=== PATIENT | male | born 1970 | race Caucasian/White ===

== ENCOUNTER 2016-08-08 17:56 | Emergency (ER) | payer OTHER ==
[~2016-08-08] VITALS: Ht 177.8 cm; Wt 99.7 kg
[2016-08-08 17:58] VITALS: Ht 177.8 cm; Wt 99.7 kg
[2016-08-08] MEDS ORDERED: IBUPROFEN 600 MG TAB PO STA (18:06)
[2016-08-08] MEDS ORDERED: OXYCODONE IR HOME PACK PO ONE (18:15)
[2016-08-08] MEDS ORDERED: BACITRACIN OINT 15 GM TUBE EXT ONE (18:15)
[2016-08-08 18:30] VITALS: BP 151/91; PULSE 83; TEMP 36.8; O2SAT 96
--- NOTE | 2016-08-08 19:09 | EMERGENCY ROOM VISIT NOTE ---
History Report prepared by Sandhya: Rosy Smith Under the Supervision of: Dr. Jordan Babcock M.D. First contact with patient: 18:01 Chief Complaint: BURN (MINOR) Stated Complaint: GREASE BURN RIGHT HAND History of Present Illness The patient is a 46 year old male who presents to the Emergency Room with complaints of constant pain from carter to the right hand and left knee that occurred 30 minutes prior to arrival. The patient states that he was making persian fries when the grease splashed. He notes the grease spilled onto his right hand and left knee. He denies the grease splashing onto his face, shortness of breathing or chest pain or recent illness. The patient is UTD with his Tetanus. He has a history of hypertension and high cholesterol, he is on medications for these. 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 Review of Systems See HPI for pertinent positives & negatives. A total of 6 systems reviewed and were otherwise negative. Past Medical & Surgical Medical Problems: (1) High cholesterol (2) Hypertension Family History Patient reports no known family medical history. Social History Smoking Status: Never Smoker Smokeless Tobacco Use: No Marital Status: single Housing Status: lives alone Occupation Status: employed Current/Historical Medications No Active Prescriptions or Reported Meds Allergies Coded Allergies: No Known Allergies (Unverified , 08/08/16) Physical Exam Vital Signs Date Time Temp Pulse Resp B/P Pulse Ox O2 Delivery O2 Flow Rate FiO2 08/08/16 18:30 36.8 83 18 151/91 96 08/08/16 18:28 36.8 83 18 151/91 96 Room Air 08/08/16 17:58 36.8 83 18 183/94 96 Room Air Physical Exam Constitutional: Vital signs reviewed. Eyes: Pupils are equal round reactive to light. Conjunctiva are noninjected. ENT: Pharynx is clear without erythema or exudate. Mucous membranes are moist. Neck supple without meningeal signs. Respiratory: Clear to auscultation bilaterally. Breath sounds are equal bilaterally. Cardiovascular: Regular rate and rhythm. No rubs or gallops. Musculoskeletal: Superficial partial-thickness burn to the left distal thigh. Partial-thickness carter to the right dorsal hand and wrist with blistering. No circumferential carter. No full-thickness carter. Integumentary: As above. Neurological: The patient is awake and alert. No focal deficits. Psychiatric: Normal affect. Medical Decision & Procedures Medications Administered Medications (Trade) Dose Ordered Sig/Magdalena Route Start Time Stop Time Status Last Admin Dose Admin Oxycodone HCl (Roxicodone Immediate Rel 5MG Home Pack) 1 homepack UD ONCE PO 08/08/16 18:15 08/08/16 18:16 DC 08/08/16 18:19 1 HOMEPACK Ibuprofen (Motrin Tab) 600 mg NOW STAT PO 08/08/16 18:06 08/08/16 18:07 DC 08/08/16 18:18 600 MG Bacitracin (Bacitracin Oint) 1 appln NOW ONCE EXT 08/08/16 18:15 08/08/16 18:16 DC 08/08/16 18:18 1 APPLN ED Course 180: The patient was evaluated in room D9. A complete history and physical exam was performed. 1805: Motrin Tab 600 mg PO. 1814: Bacitracin Oint 1 appln EXT, Roxicodone Immediate Rel 5 MG Home Pack 1 homepack PO. 1816: Upon reevaluation, the patient appeared to have improvement of his symptoms. I discussed tonight's findings with him. He verbalized agreement of the treatment plan. He was discharged home. Medical Decision This is a 46-year-old male presents with carter from [place]. I did perform a limited focused review of portions of the patient's old chart on the electronic medical record. The patient has had no recent pertinent visits to this hospital. Medication Reconciliation: I attest that I have personally reviewed the patient' s current medication list. Blood Pressure Screening: Patient was found to have an elevated blood pressure and was referred to their primary doctor for recheck and further treatment. I did evaluate the patient as noted above. The patient has partial-thickness carter to the right upper extremity and left lower extremity. He has no circumferential carter or full-thickness carter. There are some blisters which are intact. Bacitracin ointment was applied and a nonadherent dressing was placed. He will continue to use bacitracin and dressing changes twice a day and follow up with his doctor within 48 hours. He was given a home pack for oxycodone for breakthrough pain otherwise he will use Motrin. He was given a dose of Motrin here. He states his tetanus is up-to-date. He was advised to watch for signs of infection and discharged in good condition. Impression Primary Impression: Partial thickness burn of hand Additional Impression: Partial thickness burn of knee Scribe Attestation The scribe's documentation has been prepared under my direct and personally reviewed by me in its entirety. I confirm that the note above accurately reflects all work, treatment, procedures, and medical decision making performed by me. Departure Information Dispostion Home / Self-Care Prescriptions No Active Prescriptions or Reported Meds Referrals Tyler Chau M.D. (PCP) Forms HOME CARE DOCUMENTATION FORM, IMPORTANT VISIT INFORMATION Patient Instructions ED Burn D 2nd, My [facility] Additional Instructions You have been examined and treated today on an emergency basis only. This is not a substitute for, or an effort to provide, complete comprehensive medical care. It is impossible to recognize and treat all injuries or illnesses in a single emergency department visit. It is therefore important that you follow up closely with your physician within 48 hours. Call as soon as possible for an appointment. Return for worsening symptoms or if you develop fever, vomiting, redness spreading up your arm or any other concerning symptoms. Apply bacitracin ointment twice a day with non-adherent dressing. Problem Qualifiers Primary Impression: Partial thickness burn of hand Encounter type: initial encounter Laterality: right Qualified Codes: T23.201A - Burn of second degree of right hand, unspecified site, initial encounter Additional Impression: Partial thickness burn of knee Encounter type: initial encounter Laterality: left Qualified Codes: T24.222A - Burn of second degree of left knee, initial encounter
== END 2016-08-08 18:32 | disposition home or self-care (01) ==
LOC: C.EDB 17:57 → C.EDD 18:32
DX: T23.201A Burn of second degree of right hand, unspecified site, initial encounter (principal); T24.222A Burn of second degree of left knee, initial encounter; X10.2XXA Contact with fats and cooking oils, initial encounter; Y93.G1 Activity, food preparation and clean up; I10 Essential (primary) hypertension; E78.5 Hyperlipidemia, unspecified